=== PATIENT | male | born 1980 | race Two or more races ===

== ENCOUNTER 2024-02-10 08:58 | Emergency (ER) | payer OTHER ==
[~2024-02-10] VITALS: Ht 170.2 cm; Wt 81.6 kg
[2024-02-10 09:00] VITALS: BP 139/89; TEMP 98.4
[2024-02-10] MEDS ORDERED: TDAP [DIPH/PERTUSSIS/TET] 0.5 ML VIAL IM ONE (09:30)
[2024-02-10] MEDS: TDAP [DIPH/PERTUSSIS/TET] 0.5 ML VIAL IM ONE (09:34)
[2024-02-10 09:59] VITALS: O2SAT 98
== END 2024-02-10 09:59 | disposition home or self-care (01) ==
LOC: ER 09:15
DX: S01.81XA Laceration without foreign body of other part of head, initial encounter (principal); X58.XXXA Exposure to other specified factors, initial encounter; Y93.89 Activity, other specified; Y92.89 Other specified places as the place of occurrence of the external cause; Y99.8 Other external cause status
CPT/HCPCS: 90715